=== PATIENT | male | born 1955 | race Caucasian/White ===

== ENCOUNTER 2023-05-06 11:53 | Emergency (ER) | payer OTHER, SELFPAY ==
[2023-05-06 11:56] VITALS: BP 132/99; BMI 30.4
--- NOTE | 2023-05-06 13:30 | ED.MUSCINJ ---
HPI-Injury
General
Chief Complaint: Extremity Pain (non-traumatic)
Source: patient
Exam Limitations: none
Time Seen by Provider: 05/06/23 12:32
Travel History
Have you had any contact with someone who has COVID-19?: No
Do you have any symptoms of coronavirus? Fever > 100 degrees, chills, cough, shortness of breath, sore throat, loss of taste or smell, muscle aches, or headache?: No
History of Present Illness-Injury
Initial Injury comments:
67-year-old male presents with skin discomfort to the anterior left knee starting 2 days ago. He thought he had a splinter in his knee as he states light touch bothers his skin. He scratched and dog at his knee and was unable to find any
splinters. No fever. No injury. He states the pain is not made worse with motion. No other complaints at this time
Phy Exam
Physical Exam
Physical Exam:
General: Well-appearing male no acute respiratory distress
HEENT: Normocephalic atraumatic
Musculoskeletal exam: Left knee without effusion he has abrasions noted to the anterior left knee. No palpable or visible foreign bodies. Knee is nontender over the posterior joint line. Knee is stable.
Skin is intact without erythema fluctuance or induration. There is abrasion noted to the anterior left knee
Injury Course
Orders/Labs/Results
Orders:
Orders
05/06/23 12:06
Knee, Left 4 or More Views [CR Knee - Left 4 Or More View*] Urgent
Comment:
Reason For Exam: pain
MDM/Problems Addressed
Differential Diagnosis Includes:
Skin sensitivity anterior left knee. No palpable or visible foreign bodies. X-rays were taken which failed to demonstrate any foreign body. No overlying signs of cellulitis or abscess. There is no effusion in the knee. At this point no
indication for any further intervention recommend follow-up with family doctor. Considered antibiotics however no sign of cellulitis on exam today. Patient does not have a history of gout does seem to be that the skin is more sensitive than the
joint.
*Critical Care Note
Total Time (30-74mins, 75-104mins- exclusive of procedures): Not Applicable
ED Attending Note
-
Portions of this chart may have been created with voice recognition software.� Occasional wrong word or��sound alike� substitutions may have occurred due to the inherent limitations of voice recognition software.
Discharge Plan
Departure
Patient Disposition: Home (Routine Discharge)
Date of Disposition: 05/06/23
Time of Disposition: 13:35
Patient with high blood pressure during this ER visit?: No
Discharge Problem:
Abrasion
Prescriptions:
New
triamcinolone acetonide 0.1 % cream
1 applic topical TID Qty: 15 0RF
No Action
metformin 1,000 mg Tablet
1,000 mg PO BID
lisinopril 5 mg Tablet
5 mg PO DAILY
pravastatin 20 mg Tablet
20 mg PO DAILY
sertraline [Zoloft] 20 mg/mL Concentrate
20 mg PO DAILY
Flomax
0.4 mg PO DAILY
Referrals:
Liz Atkinson CRNP [Family Provider] -
Activity Restrictions/Additional Instructions:
As discussed, there is no evidence of foreign body in the skin. Currently there is no sign of infection. Consider topical hydrocortisone or antibacterial ointment. Return if worse otherwise
Interventions
Interventions:
*Risk Screen - Suicide Last Done: 05/06/23 11:56
*General Assessment Last Done: 05/06/23 13:45
*Neglect/Abuse Screening Last Done: 05/06/23 11:56
ED- Fall Risk Assessment Last Done: 05/06/23 13:45
*ED COVID-19 Vaccine History Last Done: 05/06/23 11:56
*Nursing Disposition Last Done: 05/06/23 13:45
ED-Skin Assessment Last Done: 05/06/23 13:45
Discharge Date and Time
Discharge Date/Time: 05/06/23 13:45
== END 2023-05-06 13:45 | disposition home or self-care (01) ==
LOC: EMR 11:53
PROVIDERS: EMERGENCY PHYSICIAN Emergency Medicine; FAMILY PHYSICIAN Nurse Practitioner Family
DX: S80.212A Abrasion, left knee, initial encounter (principal); X58.XXXA Exposure to other specified factors, initial encounter
CPT/HCPCS: 99283; 73564; 99284